=== PATIENT | male | born 1990 | race African-American/Black ===

== ENCOUNTER 2024-03-04 16:10 | Emergency (ER) | payer MEDICAID ==
[~2024-03-04] VITALS: Ht 185.4 cm; Wt 90.7 kg
[2024-03-04 16:29] VITALS: BP 139/73; RESP 16; TEMP 98.2; O2SAT 100
[2024-03-04 16:30] VITALS: PULSE 82; O2SAT 98
[2024-03-04 17:10] LABS: CLARITY URINE CLOUDY (CLEAR); COLOR URINE YELLOW (YELLOW); GLUCOSE URINE NEGATIVE (NEGATIVE); KETONES URINE NEGATIVE (NEGATIVE); LEUKOCYTE ESTERASE URINE 2+ (NEGATIVE); NITRITE URINE NEGATIVE (NEGATIVE); OCCULT BLOOD URINE TRACE (NEGATIVE); PH URINE 5.5 (4.5-8.0); PROTEIN URINE TRACE (NEGATIVE); SPECIFIC GRAVITY URINE 1.033 (1.005-1.030); UROBILINOGEN URINE 0.2 E.U./dL (0.2-1.0)
[2024-03-04 17:34] LABS: RBC URINE 0-2 /hpf (0-2); SQUAMOUS EPITHELIAL CELL URINE FEW /lpf (RARE/1+); WBC URINE 50-100 /hpf (0-2)
[2024-03-04 17:35] LABS: BACTERIA URINE TRACE
[2024-03-04] MEDS: AZITHROMYCIN 500 MG TABLET PO ONE (20:35)
[2024-03-04] MEDS: CEFTRIAXONE SODIUM 500MG VIAL IM ONE (20:36)
[2024-03-07 04:09] LABS: CHLAMYDIA TRACHOMATIS NAA Negative (Negative); NEISSERIA GONORRHOEAE NAA Positive (Negative)
== END 2024-03-04 20:46 | disposition home or self-care (01) ==
LOC: ER 16:10
DX: N34.2 Other urethritis (principal)
CPT/HCPCS: 87491; 87591; 81003; 87086; 87077; 96372; 99283; J0696; Z7610